=== PATIENT | female | born 1935 | race Caucasian/White ===

== ENCOUNTER 2017-09-12 08:42 | Inpatient (IN) | payer MEDICARE ==
[2017-09-12 09:32] LABS: BASOPHILS % (AUTO) 0.3 % (0.0-5.0); EOSINOPHILS % (AUTO) 1.1 % (0.0-8.0); LYMPHOCYTES % (AUTO) 6.9 % (21.0-51.0); MEAN CORPUSCULAR HGB CONC 34.3 g/dL (32.0-36.0); MEAN CORPUSCULAR VOLUME 96.4 fL (79-99); MONOCYTES % (AUTO) 8.3 % (3.0-13.0); NEUTROPHILS % (AUTO) 83.4 % (40.0-77.0); PLATELET COUNT (AUTO) 245 K/uL (130-400); RED BLOOD CELL COUNT(AUTO) 3.42 MIL/uL (4.00-5.50); RED CELL DISTRIBUTION WIDTH 13.7 % (11.0-15.5); WHITE BLOOD COUNT (AUTO) 8.9 K/uL (4.8-10.8)
[2017-09-12] MEDS ORDERED: SODIUM CHLORIDE 0.9% 1000ML 1,000 ML IV ONE ×2 (09:51→18:03)
[2017-09-12 10:12] LABS: B-TYPE NATRIURETIC PEPTIDE 223 pg/mL (0-100)
[2017-09-12 10:46] LABS: CREATININE 1.1 mg/dL (0.5-1.5)
[2017-09-12 10:48] LABS: ALBUMIN 2.9 g/dL (3.5-5.0)
[2017-09-12 10:57] LABS: BILIRUBIN,TOTAL 0.6 mg/dL (0.2-1.0); TOTAL PROTEIN, SERUM 6.4 g/dL (6.0-8.3)
[2017-09-12 14:15] LABS: APPEARANCE,URINE Clear (CLEAR); BILIRUBIN,URINE Negative (NEGATIVE); COLOR,URINE Dark Yellow (YELLOW); GLUCOSE, URINE (UA) Negative (NEGATIVE); KETONES,URINE Negative (NEGATIVE); LEUKOCYTE ESTERASE ,URINE Small (NEGATIVE); NITRATE,URINE Negative (NEGATIVE); OCCULT BLOOD,URINE Negative (NEGATIVE); PH,URINE 6.5 (5.0-8.0); PROTEIN,URINE POS 1+ (NEGATIVE)
[2017-09-12 14:47] LABS: BACTERIA,URINE Few /HPF (None Seen); RBC,URINE 0-1 /HPF (0-1); SQUAMOUS EPITHELIAL CELL,UR Rare /LPF (0-2)
[2017-09-12 16:00] VITALS: BP 123/75
[2017-09-12] MEDS ORDERED: DILT240C3 PO (17:11)
[2017-09-12] MEDS ORDERED: PRAM0.5T12 PO (17:11)
[2017-09-12] MEDS ORDERED: POTA10TA11 PO (17:11)
[2017-09-12] MEDS ORDERED: RANO10003 PO (17:11)
[2017-09-12] MEDS ORDERED: CHOL500050 PO (17:11)
[2017-09-12] MEDS ORDERED: NITR0.4T50 SL (17:11)
[2017-09-12] MEDS ORDERED: APIX2.5T PO (17:11)
[2017-09-12] MEDS ORDERED: ATOR40TA71 PO (17:11)
[2017-09-12] MEDS ORDERED: PANT40TA25 PO (17:11)
[2017-09-12 19:56] VITALS: BP 100/64
[2017-09-12] MEDS: APIXABAN 2.5 MG TABLET PO SCH (21:00)
[2017-09-12] MEDS ORDERED: NITROGLYCERIN 0.4 MG SL TAB SL SCH (21:00)
[2017-09-12] MEDS: RANOLAZINE 500 MG TAB.SR.12H PO SCH (21:00)
[2017-09-12] MEDS ORDERED: HYDRALAZINE HCL 20 MG/ML VIAL IV PRN (21:00)
[2017-09-12] MEDS: ATORVASTATIN CALCIUM 40 MG TABLET PO SCH (21:00)
[2017-09-12] MEDS ORDERED: ONDANSETRON HCL 4 MG/2 ML VIAL IV PRN (21:00)
[2017-09-12] MEDS: METRONIDAZOLE 500MG/100ML BAG 100 ML IV SCH (21:36)
[2017-09-12] MEDS: PRAMIPEXOLE DI HCL PO SCH (21:36)
[2017-09-12] MEDS: ACETAMINOPHEN 325 MG TAB PO PRN (21:37)
[2017-09-12] MEDS: DILTIAZEM HCL 5 MG/ML 10 ML VIAL IV SCH (22:00)
[2017-09-12] MEDS: METOPROLOL TARTRATE 1 MG/ML 5ML VIAL IV SCH (22:29)
[2017-09-12 22:58] VITALS: BP 97/67
[2017-09-13 03:25] VITALS: BP 101/67
[2017-09-13 05:03] LABS: BASOPHILS % (AUTO) 0.5 % (0.0-5.0); EOSINOPHILS % (AUTO) 1.6 % (0.0-8.0); HEMATOCRIT 32.8 % (36-48); LYMPHOCYTES % (AUTO) 8.9 % (21.0-51.0); MEAN CORPUSCULAR HEMOGLOBIN 33.4 pg (27.0-33.0); MEAN CORPUSCULAR HGB CONC 34.6 g/dL (32.0-36.0); MEAN CORPUSCULAR VOLUME 96.5 fL (79-99); MONOCYTES % (AUTO) 8.7 % (3.0-13.0); NEUTROPHILS % (AUTO) 80.3 % (40.0-77.0); PLATELET COUNT (AUTO) 247 K/uL (130-400); RED CELL DISTRIBUTION WIDTH 13.7 % (11.0-15.5); WHITE BLOOD COUNT (AUTO) 10.4 K/uL (4.8-10.8)
[2017-09-13 05:12] LABS: CREATININE 0.8 mg/dL (0.5-1.5); POTASSIUM 3.2 mmol/L (3.5-5.1)
[2017-09-13] MEDS: METRONIDAZOLE 500MG/100ML BAG 100 ML IV SCH ×3 (05:36→20:49)
[2017-09-13 07:00] VITALS: BP 107/60
[2017-09-13] MEDS ORDERED: POTASSIUM CHLORIDE 10% ELIXIR 20 MEQ/15 ML UDCUP PO PRN (08:30)
[2017-09-13] MEDS ORDERED: POTASSIUM CHLORIDE 20MEQ/100ML 100 ML IV PRN (08:30)
[2017-09-13] MEDS ORDERED: LIDOCAINE HCL-MPF 1% 2ML VIAL IVP PRN (08:30)
[2017-09-13] MEDS: APIXABAN 2.5 MG TABLET PO SCH ×2 (08:38→20:50)
[2017-09-13] MEDS: DILTIAZEM HCL 120 MG CAP.SR.24H PO SCH (08:38)
[2017-09-13] MEDS: POTASSIUM CHLORIDE 20 MEQ ERTAB PO SCH (08:42)
[2017-09-13] MEDS: PANTOPRAZOLE SODIUM 40 MG TABLET.DR PO SCH (08:43)
[2017-09-13] MEDS: RANOLAZINE 500 MG TAB.SR.12H PO SCH ×2 (08:44→20:50)
[2017-09-13] MEDS: ACETAMINOPHEN 325 MG TAB PO PRN ×2 (09:03→20:49)
[2017-09-13 12:41] VITALS: BP 106/58
[2017-09-13] MEDS: POTASSIUM CHLORIDE 20 MEQ ERTAB PO PRN ×2 (12:45→19:39)
[2017-09-13] MEDS: SODIUM CHLORIDE 0.9% 1000ML 1,000 ML IV SCH (12:46)
[2017-09-13 16:00] VITALS: BP 115/57
[2017-09-13 19:43] VITALS: BP 100/57
[2017-09-13] MEDS ORDERED: TERI2.4P SQ (19:49)
[2017-09-13] MEDS: PRAMIPEXOLE DI HCL PO SCH (20:50)
[2017-09-13] MEDS: ATORVASTATIN CALCIUM 40 MG TABLET PO SCH (20:50)
[2017-09-13] MEDS: DILTIAZEM HCL 5 MG/ML 10 ML VIAL IV SCH (20:51)
[2017-09-13] MEDS: METOPROLOL TARTRATE 1 MG/ML 5ML VIAL IV SCH (20:51)
[2017-09-14] MEDS: SODIUM CHLORIDE 0.9% 1000ML 1,000 ML IV SCH ×2 (00:28→11:07)
[2017-09-14 00:32] VITALS: BP 92/66
[2017-09-14 04:04] VITALS: BP 93/50
[2017-09-14 04:20] LABS: CREATININE 0.8 mg/dL (0.5-1.5); POTASSIUM 3.6 mmol/L (3.5-5.1)
[2017-09-14] MEDS: METRONIDAZOLE 500MG/100ML BAG 100 ML IV SCH ×3 (05:26→20:27)
[2017-09-14] MEDS: PANTOPRAZOLE SODIUM 40 MG TABLET.DR PO SCH (06:29)
[2017-09-14] MEDS: ACETAMINOPHEN 325 MG TAB PO PRN (06:29)
[2017-09-14] MEDS: POTASSIUM CHLORIDE 20 MEQ ERTAB PO PRN (06:29)
[2017-09-14 07:30] VITALS: BP 113/71
[2017-09-14] MEDS: APIXABAN 2.5 MG TABLET PO SCH ×2 (08:35→20:28)
[2017-09-14] MEDS: RANOLAZINE 500 MG TAB.SR.12H PO SCH ×2 (08:35→20:28)
[2017-09-14] MEDS: DILTIAZEM HCL 120 MG CAP.SR.24H PO SCH (08:35)
[2017-09-14] MEDS: POTASSIUM CHLORIDE 20 MEQ ERTAB PO SCH (08:37)
[2017-09-14 12:00] VITALS: BP 99/57
[2017-09-14 16:00] VITALS: BP 139/76
[2017-09-14] MEDS ORDERED: MORPHINE SULFATE 2 MG/ML 1ML SYG IVP PRN (18:00)
[2017-09-14] MEDS ORDERED: ACETAMINOPHEN-CODEINE 300/30MG TAB PO PRN (18:00)
[2017-09-14 19:00] VITALS: BP 110/65
[2017-09-14] MEDS: PRAMIPEXOLE DI HCL PO SCH (20:27)
[2017-09-14] MEDS: ATORVASTATIN CALCIUM 40 MG TABLET PO SCH (20:27)
[2017-09-14] MEDS: DILTIAZEM HCL 5 MG/ML 10 ML VIAL IV SCH (22:00)
[2017-09-14] MEDS: TRAMADOL HCL 50 MG TABLET PO PRN (22:03)
[2017-09-14] MEDS: METOPROLOL TARTRATE 1 MG/ML 5ML VIAL IV SCH (22:15)
[2017-09-15] VITALS: BP 112/70
[2017-09-15 04:30] VITALS: BP 97/61
[2017-09-15] MEDS: METRONIDAZOLE 500MG/100ML BAG 100 ML IV SCH ×2 (05:45→14:06)
[2017-09-15] MEDS: PANTOPRAZOLE SODIUM 40 MG TABLET.DR PO SCH (06:43)
[2017-09-15 07:30] VITALS: BP 103/63
[2017-09-15] MEDS: RANOLAZINE 500 MG TAB.SR.12H PO SCH ×2 (08:54→20:13)
[2017-09-15] MEDS: APIXABAN 2.5 MG TABLET PO SCH ×2 (08:54→20:13)
[2017-09-15] MEDS: POTASSIUM CHLORIDE 20 MEQ ERTAB PO SCH (08:55)
[2017-09-15] MEDS: DILTIAZEM HCL 120 MG CAP.SR.24H PO SCH (08:55)
[2017-09-15 12:00] VITALS: BP 106/75
[2017-09-15] MEDS ORDERED: PHARMACY COMMUNICATION MISC SCH (14:15)
[2017-09-15] MEDS ORDERED: COMPOUND PO MISCELLANEOUS 1 EACH MISC MISC PRN (14:30)
[2017-09-15 16:00] VITALS: BP 107/68
[2017-09-15] MEDS: VANCOMYCIN 250MG/5ML ORAL SOLUTION 40ML PO SCH ×4 (18:06→20:15)
[2017-09-15 19:00] VITALS: BP 101/60
[2017-09-15] MEDS: DILTIAZEM HCL 5 MG/ML 10 ML VIAL IV SCH (19:43)
[2017-09-15] MEDS: METOPROLOL TARTRATE 1 MG/ML 5ML VIAL IV SCH (19:43)
[2017-09-15] MEDS: PRAMIPEXOLE DI HCL PO SCH (20:13)
[2017-09-15] MEDS: ATORVASTATIN CALCIUM 40 MG TABLET PO SCH (20:13)
[2017-09-15] MEDS: SODIUM CHLORIDE 0.9% 1000ML 1,000 ML IV SCH (20:15)
[2017-09-16] VITALS: BP 100/59
[2017-09-16] MEDS: ACETAMINOPHEN 325 MG TAB PO PRN (01:09)
[2017-09-16 04:00] VITALS: BP 101/55
[2017-09-16] MEDS: PANTOPRAZOLE SODIUM 40 MG TABLET.DR PO SCH (06:28)
[2017-09-16 08:00] VITALS: BP 120/75
[2017-09-16 08:38] LABS: HEMATOCRIT 31.1 % (36-48); MEAN CORPUSCULAR HGB CONC 35.2 g/dL (32.0-36.0); MEAN CORPUSCULAR VOLUME 96.6 fL (79-99); PLATELET COUNT (AUTO) 266 K/uL (130-400); RED BLOOD CELL COUNT(AUTO) 3.22 MIL/uL (4.00-5.50); RED CELL DISTRIBUTION WIDTH 14.2 % (11.0-15.5); WHITE BLOOD COUNT (AUTO) 6.1 K/uL (4.8-10.8)
[2017-09-16 09:33] LABS: ALBUMIN 2.6 g/dL (3.5-5.0); BILIRUBIN,TOTAL 0.4 mg/dL (0.2-1.0); CREATININE 0.9 mg/dL (0.5-1.5); POTASSIUM 3.9 mmol/L (3.5-5.1); TOTAL PROTEIN, SERUM 5.6 g/dL (6.0-8.3)
[2017-09-16] MEDS: RANOLAZINE 500 MG TAB.SR.12H PO SCH ×2 (09:36→20:38)
[2017-09-16] MEDS: APIXABAN 2.5 MG TABLET PO SCH ×2 (09:36→20:38)
[2017-09-16] MEDS: POTASSIUM CHLORIDE 20 MEQ ERTAB PO SCH (09:37)
[2017-09-16] MEDS: DILTIAZEM HCL 120 MG CAP.SR.24H PO SCH (09:37)
[2017-09-16] MEDS: VANCOMYCIN 250MG/5ML ORAL SOLUTION 40ML PO SCH ×8 (09:38→20:37)
[2017-09-16 09:50] LABS: BASOPHILS % (MANUAL) 1 % (0-2); EOSINOPHILS % (MANUAL) 4 % (1-6); LYMPHOCYTES % (MANUAL) 8 % (22-44); MAN.DIFF COMMENT-IMPRESSION MANUAL DIFFERENTIAL; MONOCYTES % (MANUAL) 6 % (2-9); PLATELET MORPHOLOGY COMMENT ADEQUATE; SEGMENTED NEUTROPHILS % 81 % (40-70)
[2017-09-16 11:27] VITALS: BP 117/71
[2017-09-16] MEDS: SODIUM CHLORIDE 0.9% 1000ML 1,000 ML IV SCH ×2 (14:08→17:00)
[2017-09-16 16:00] VITALS: BP 107/71
[2017-09-16 19:00] VITALS: BP 121/74
[2017-09-16] MEDS: DILTIAZEM HCL 5 MG/ML 10 ML VIAL IV SCH (20:12)
[2017-09-16] MEDS: TRAMADOL HCL 50 MG TABLET PO PRN (20:38)
[2017-09-16] MEDS: ATORVASTATIN CALCIUM 40 MG TABLET PO SCH (20:38)
[2017-09-16] MEDS: PRAMIPEXOLE DI HCL PO SCH (20:39)
[2017-09-16] MEDS: METOPROLOL TARTRATE 1 MG/ML 5ML VIAL IV SCH (22:15)
[2017-09-17] VITALS (7 sets, daily range): BP systolic 106–127; BP diastolic 61–76
[2017-09-17] MEDS: SODIUM CHLORIDE 0.9% 1000ML 1,000 ML IV SCH ×2 (03:32→14:51)
[2017-09-17] MEDS: PANTOPRAZOLE SODIUM 40 MG TABLET.DR PO SCH (06:43)
[2017-09-17 08:43] LABS: CREATININE 0.7 mg/dL (0.5-1.5); MAGNESIUM 1.5 mg/dL (1.80-2.40); POTASSIUM 3.9 mmol/L (3.5-5.1)
[2017-09-17] MEDS ORDERED: MAGNESIUM SULFATE 1 GM in SODIUM CHLORIDE 0.9% 50 ML IV SCH (10:30)
[2017-09-17] MEDS: DILTIAZEM HCL 120 MG CAP.SR.24H PO SCH (10:45)
[2017-09-17] MEDS: APIXABAN 2.5 MG TABLET PO SCH ×2 (10:45→21:37)
[2017-09-17] MEDS: RANOLAZINE 500 MG TAB.SR.12H PO SCH ×2 (10:45→21:37)
[2017-09-17] MEDS: POTASSIUM CHLORIDE 20 MEQ ERTAB PO SCH (10:50)
[2017-09-17] MEDS: VANCOMYCIN 250MG/5ML ORAL SOLUTION 40ML PO SCH ×8 (10:51→21:39)
[2017-09-17] MEDS ORDERED: MAGNESIUM 2GM PREMIX 50ML 0 ML IV ONE (18:02)
[2017-09-17] MEDS: ATORVASTATIN CALCIUM 40 MG TABLET PO SCH (21:37)
[2017-09-17] MEDS: PRAMIPEXOLE DI HCL PO SCH (21:37)
[2017-09-17] MEDS: DILTIAZEM HCL 5 MG/ML 10 ML VIAL IV SCH (21:39)
[2017-09-17] MEDS: METOPROLOL TARTRATE 1 MG/ML 5ML VIAL IV SCH (21:40)
[2017-09-18 03:20] VITALS: BP 109/65
[2017-09-18 03:42] LABS: BASOPHILS % (AUTO) 0.5 % (0.0-5.0); EOSINOPHILS % (AUTO) 3.3 % (0.0-8.0); HEMATOCRIT 33.5 % (36-48); LYMPHOCYTES % (AUTO) 15.7 % (21.0-51.0); MEAN CORPUSCULAR HEMOGLOBIN 33.4 pg (27.0-33.0); MEAN CORPUSCULAR VOLUME 95.6 fL (79-99); MONOCYTES % (AUTO) 5.9 % (3.0-13.0); NEUTROPHILS % (AUTO) 74.6 % (40.0-77.0); NUCLEATED RED BLOOD CELLS 0.1 % (0.0-0.19); PLATELET COUNT (AUTO) 331 K/uL (130-400); RED BLOOD CELL COUNT(AUTO) 3.51 MIL/uL (4.00-5.50); RED CELL DISTRIBUTION WIDTH 14.3 % (11.0-15.5); WHITE BLOOD COUNT (AUTO) 6.4 K/uL (4.8-10.8)
[2017-09-18 03:59] LABS: ALBUMIN 2.7 g/dL (3.5-5.0); BILIRUBIN,TOTAL 0.4 mg/dL (0.2-1.0); CREATININE 0.8 mg/dL (0.5-1.5); POTASSIUM 4.4 mmol/L (3.5-5.1); TOTAL PROTEIN, SERUM 5.8 g/dL (6.0-8.3)
[2017-09-18] MEDS: PANTOPRAZOLE SODIUM 40 MG TABLET.DR PO SCH (06:01)
[2017-09-18 07:00] VITALS: BP 120/54
[2017-09-18] MEDS: APIXABAN 2.5 MG TABLET PO SCH ×2 (10:37→21:31)
[2017-09-18] MEDS: DILTIAZEM HCL 120 MG CAP.SR.24H PO SCH (10:38)
[2017-09-18] MEDS: POTASSIUM CHLORIDE 20 MEQ ERTAB PO SCH (10:39)
[2017-09-18] MEDS: RANOLAZINE 500 MG TAB.SR.12H PO SCH ×2 (10:40→21:31)
[2017-09-18] MEDS: VANCOMYCIN 250MG/5ML ORAL SOLUTION 40ML PO SCH ×6 (10:40→21:31)
[2017-09-18 12:00] VITALS: BP 110/71
[2017-09-18] MEDS: SODIUM CHLORIDE 0.9% 1000ML 1,000 ML IV SCH (13:49)
[2017-09-18 16:00] VITALS: BP 117/76
[2017-09-18 20:10] VITALS: BP 120/76
[2017-09-18] MEDS: ATORVASTATIN CALCIUM 40 MG TABLET PO SCH (21:31)
[2017-09-18] MEDS: PRAMIPEXOLE DI HCL PO SCH (21:31)
[2017-09-18 23:36] VITALS: BP 113/68
[2017-09-19 04:01] VITALS: BP 106/71
[2017-09-19] MEDS: PANTOPRAZOLE SODIUM 40 MG TABLET.DR PO SCH (06:36)
[2017-09-19 08:00] VITALS: BP 114/77
[2017-09-19] MEDS: RANOLAZINE 500 MG TAB.SR.12H PO SCH (11:19)
[2017-09-19] MEDS: DILTIAZEM HCL 120 MG CAP.SR.24H PO SCH (11:19)
[2017-09-19] MEDS: APIXABAN 2.5 MG TABLET PO SCH (11:19)
[2017-09-19] MEDS: POTASSIUM CHLORIDE 20 MEQ ERTAB PO SCH (11:19)
[2017-09-19 12:00] VITALS: BP 116/61
== END 2017-09-19 13:15 | disposition home or self-care (01) | DRG 872 ==
LOC: EDH 08:42 → EDHIP 12:21 → OBSVTOIN 12:21 → 3AH 15:47
PROVIDERS: ADMIT Family Medicine; ATTEND Family Medicine
DX: A41.4 Sepsis due to anaerobes (principal); A04.72 Enterocolitis due to Clostridium difficile, not specified as recurrent; I48.91 Unspecified atrial fibrillation; E83.42 Hypomagnesemia; N39.0 Urinary tract infection, site not specified; Z95.1 Presence of aortocoronary bypass graft; R19.7 Diarrhea, unspecified; K80.20 Calculus of gallbladder without cholecystitis without obstruction; Z95.0 Presence of cardiac pacemaker; I10 Essential (primary) hypertension; I25.10 Atherosclerotic heart disease of native coronary artery without angina pectoris; E78.5 Hyperlipidemia, unspecified; E11.9 Type 2 diabetes mellitus without complications; Z90.710 Acquired absence of both cervix and uterus
CPT/HCPCS: 36415; 74176; 76705; 80048; 80053; 81001; 82270; 82948; 83605; 83690; 83735; 83880; 84484; 85025; 87040; 87046; 87205; 87324; 87507; 87804; 93005; J3370; J3475; J3490; J7030